=== PATIENT | male | born 1950 | race Caucasian/White ===

== ENCOUNTER 2020-09-23 13:20 | Emergency (ER) | payer MEDICARE ==
[~2020-09-23] VITALS: Ht 172.7 cm; Wt 68.5 kg
== END 2020-09-23 15:34 | disposition home or self-care (01) ==
LOC: ED 13:20
DX: S80.812A Abrasion, left lower leg, initial encounter (principal); Z88.6 Allergy status to analgesic agent; W20.8XXA Other cause of strike by thrown, projected or falling object, initial encounter; Y93.89 Activity, other specified; Y92.89 Other specified places as the place of occurrence of the external cause; Y99.8 Other external cause status

== ENCOUNTER → 2020-10-24 | Outpatient (CLI) | payer MEDICARE | LOC: WOUNDCARE 01:51 | PROVIDERS: ATTEND Nurse Practitioner | DX: S80.12XA Contusion of left lower leg, initial encounter (principal); L97.822 Non-pressure chronic ulcer of other part of left lower leg with fat layer exposed; L97.222 Non-pressure chronic ulcer of left calf with fat layer exposed; L03.116 Cellulitis of left lower limb; I10 Essential (primary) hypertension; E78.00 Pure hypercholesterolemia, unspecified; F17.210 Nicotine dependence, cigarettes, uncomplicated; Z71.6 Tobacco abuse counseling; Z79.899 Other long term (current) drug therapy; W28.XXXA Contact with powered lawn mower, initial encounter; Y93.89 Activity, other specified; Y92.89 Other specified places as the place of occurrence of the external cause; Y99.8 Other external cause status ==

== ENCOUNTER → 2020-10-31 | Outpatient (CLI) | payer MEDICARE | LOC: WOUNDCARE 01:18 | PROVIDERS: ATTEND Nurse Practitioner | DX: S80.12XD Contusion of left lower leg, subsequent encounter (principal); L97.222 Non-pressure chronic ulcer of left calf with fat layer exposed; L03.116 Cellulitis of left lower limb; I10 Essential (primary) hypertension; E78.00 Pure hypercholesterolemia, unspecified; F17.210 Nicotine dependence, cigarettes, uncomplicated; Z71.6 Tobacco abuse counseling; Z79.899 Other long term (current) drug therapy; W28.XXXD Contact with powered lawn mower, subsequent encounter ==

== ENCOUNTER → 2020-11-06 | Outpatient (CLI) | payer MEDICARE | LOC: WOUNDCARE 00:53 | PROVIDERS: ATTEND Nurse Practitioner | DX: S80.12XD Contusion of left lower leg, subsequent encounter (principal); L97.222 Non-pressure chronic ulcer of left calf with fat layer exposed; L03.116 Cellulitis of left lower limb; I10 Essential (primary) hypertension; E78.00 Pure hypercholesterolemia, unspecified; Z71.6 Tobacco abuse counseling; Z79.899 Other long term (current) drug therapy; W28.XXXD Contact with powered lawn mower, subsequent encounter ==

== ENCOUNTER → 2020-11-14 | Outpatient (CLI) | payer MEDICARE | LOC: WOUNDCARE 00:36 | PROVIDERS: ATTEND Nurse Practitioner | DX: S80.12XD Contusion of left lower leg, subsequent encounter (principal); L97.222 Non-pressure chronic ulcer of left calf with fat layer exposed; L03.116 Cellulitis of left lower limb; I10 Essential (primary) hypertension; E78.00 Pure hypercholesterolemia, unspecified; Z71.6 Tobacco abuse counseling; Z79.899 Other long term (current) drug therapy; W28.XXXD Contact with powered lawn mower, subsequent encounter ==

== ENCOUNTER → 2020-11-21 | Outpatient (CLI) | payer MEDICARE | LOC: WOUNDCARE 03:21 | PROVIDERS: ATTEND Nurse Practitioner | DX: S80.12XD Contusion of left lower leg, subsequent encounter (principal); L97.222 Non-pressure chronic ulcer of left calf with fat layer exposed; L03.116 Cellulitis of left lower limb; I10 Essential (primary) hypertension; E78.00 Pure hypercholesterolemia, unspecified; Z71.6 Tobacco abuse counseling; Z79.899 Other long term (current) drug therapy; W28.XXXD Contact with powered lawn mower, subsequent encounter ==

== ENCOUNTER → 2020-11-28 | Outpatient (CLI) | payer MEDICARE | LOC: WOUNDCARE 00:36 | PROVIDERS: ATTEND Nurse Practitioner | DX: L97.822 Non-pressure chronic ulcer of other part of left lower leg with fat layer exposed (principal); S80.12XD Contusion of left lower leg, subsequent encounter; L97.222 Non-pressure chronic ulcer of left calf with fat layer exposed; L03.116 Cellulitis of left lower limb; I10 Essential (primary) hypertension; E78.00 Pure hypercholesterolemia, unspecified; Z71.6 Tobacco abuse counseling; Z79.899 Other long term (current) drug therapy; W28.XXXD Contact with powered lawn mower, subsequent encounter ==

== ENCOUNTER → 2020-12-05 | Outpatient (CLI) | payer MEDICARE | LOC: WOUNDCARE 00:49 | PROVIDERS: ATTEND Nurse Practitioner | DX: S80.12XD Contusion of left lower leg, subsequent encounter (principal); L97.222 Non-pressure chronic ulcer of left calf with fat layer exposed; L03.116 Cellulitis of left lower limb; I10 Essential (primary) hypertension; E78.00 Pure hypercholesterolemia, unspecified; Z71.6 Tobacco abuse counseling; Z79.899 Other long term (current) drug therapy; W28.XXXD Contact with powered lawn mower, subsequent encounter ==

== ENCOUNTER → 2020-12-11 | Outpatient (CLI) | payer MEDICARE | LOC: WOUNDCARE 00:45 | PROVIDERS: ATTEND Nurse Practitioner | DX: S80.12XD Contusion of left lower leg, subsequent encounter (principal); L97.222 Non-pressure chronic ulcer of left calf with fat layer exposed; L03.116 Cellulitis of left lower limb; I10 Essential (primary) hypertension; E78.00 Pure hypercholesterolemia, unspecified; Z71.6 Tobacco abuse counseling; Z79.899 Other long term (current) drug therapy; W28.XXXD Contact with powered lawn mower, subsequent encounter ==